=== PATIENT | female | born 1955 | race African-American/Black ===

== ENCOUNTER 2017-04-22 21:04 | Emergency (ER) | payer MEDICARE, OTHER ==
[~2017-04-22] VITALS: Ht 160 cm; Wt 57.0 kg
[~2017-04-22 21:04] MED LIST: AMLO5TAB66 PO; ASPI-825 PO; BACL10TA PO; BUPR150T2 PO; CALC500T62 PO; CYCL10 PO; FOLI1TAB15 PO; GABA-531 PO; HYDR25TA PO; INSU100V9 SQ; INSU3INS3 SQ; LEVO20CA PO; METF10002 PO; NAPR-58 PO; OXYB5 PO; OXYC20 PO; PRAM0.129 PO; QUET300T2 PO; TRAZ-147 PO; VALS160T2 PO; VITAD400 PO
[2017-04-22 21:09] VITALS: BP 101/59
[2017-04-22] MEDS ORDERED: NIFE60TA71 PO (21:19)
[2017-04-22] MEDS ORDERED: INSU100C6 SQ (21:19)
[2017-04-22] MEDS ORDERED: SPIR25 PO (21:19)
[2017-04-22] MEDS ORDERED: CARV12 PO (21:19)
[2017-04-22] MEDS ORDERED: INSLAN SQ (21:19)
[2017-04-22 21:27] LABS: GLUCOSE,POINT OF CARE 166 MG/DL (70-110)
[2017-04-22] MEDS ORDERED: SODIUM CHLORIDE 0.9% 1,000 ML IV ONE (22:45)
== END 2017-04-22 23:18 | disposition left against medical advice (07) ==
LOC: EMS 21:07
DX: I95.9 Hypotension, unspecified (principal); J45.909 Unspecified asthma, uncomplicated; E11.9 Type 2 diabetes mellitus without complications; I10 Essential (primary) hypertension; F17.210 Nicotine dependence, cigarettes, uncomplicated; Z53.21 Procedure and treatment not carried out due to patient leaving prior to being seen by health care provider
CPT/HCPCS: 82962

== ENCOUNTER 2018-11-24 23:04 | Emergency (ER) | payer MEDICARE, OTHER ==
[~2018-11-24] VITALS: Ht 160 cm; Wt 54.5 kg
[~2018-11-24 23:04] MED LIST changes: -AMLO5TAB66 PO; -ASPI-825 PO; -BACL10TA PO; -BUPR150T2 PO; -CALC500T62 PO; +CARV12 PO; -CYCL10 PO; -FOLI1TAB15 PO; -GABA-531 PO; -HYDR25TA PO; +INSLAN SQ; +INSU100C6 SQ; -INSU100V9 SQ; -INSU3INS3 SQ; -LEVO20CA PO; -METF10002 PO; -NAPR-58 PO; +NIFE60TA71 PO; -OXYB5 PO; -OXYC20 PO; -PRAM0.129 PO; -QUET300T2 PO; +SPIR25 PO; -TRAZ-147 PO; -VALS160T2 PO; -VITAD400 PO
[2018-11-24 23:08] VITALS: BP 162/102
[2018-11-24 23:19] LABS: GLUCOSE,POINT OF CARE 224 MG/DL (70-110)
== END 2018-11-24 23:13 | disposition left against medical advice (07) ==
LOC: EMS 23:06
DX: E11.65 Type 2 diabetes mellitus with hyperglycemia (principal); Z53.21 Procedure and treatment not carried out due to patient leaving prior to being seen by health care provider

== ENCOUNTER → 2020-06-08 | Outpatient (CLI) | payer MEDICARE, OTHER ==
[~2020-06-08] MED LIST changes: +GADOBUTROL 1 MMOL/ML 10 ML VIAL IVP ONE; +NIFE-39 PO; -NIFE60TA71 PO
== END | disposition home or self-care (01) ==
LOC: RADMN 10:20
DX: M19.072 Primary osteoarthritis, left ankle and foot (principal); M79.89 Other specified soft tissue disorders
CPT/HCPCS: 73720; A9585